=== PATIENT | female | born 1925 | race Caucasian/White ===

== ENCOUNTER → 2017-03-08 | Outpatient (CLI) | payer OTHER, BC ==
[~2017-03-08] MED LIST: AMBEREN; APAP500 PO; ASPIRIN EC81 M1; CALCIUM 600 +1 EAC1; CEFADROXIL; CITRUCEL500 MG; NORCO 5-325 TA1 EACH PO; NORVASC 5 MG TAB5 MG; PEPCID AC10 M1; SIMVASTATIN40 MG; VITAMIN C + RO500 MG; VITAMIN E400 UNIT
== END ==
LOC: RAD 03:42
DX: Z12.31 Encounter for screening mammogram for malignant neoplasm of breast (principal)